=== PATIENT | female | born 1940 | race Caucasian/White ===

== ENCOUNTER 2017-12-22 16:29 | Emergency (ER) | payer OTHER ==
[~2017-12-22] VITALS: Ht 149.9 cm; Wt 58.1 kg
[~2017-12-22 16:29] MED LIST: LOPRESSOR25 MG; NIFE60TA3; SYNTHROID88 MCG
[2017-12-22] MEDS ORDERED: PLAVIX75 MG (17:15)
[2017-12-22] MEDS ORDERED: ULTRACET PO (19:16)
== END 2017-12-22 19:53 ==
LOC: ER 16:29
DX: S63.256A Unspecified dislocation of right little finger, initial encounter (principal); W18.39XA Other fall on same level, initial encounter; Y93.89 Activity, other specified; Y92.89 Other specified places as the place of occurrence of the external cause; Y99.8 Other external cause status